=== PATIENT | female | born 1990 | race Two or more races ===

== ENCOUNTER 2018-09-01 08:43 | Emergency (ER) | payer OTHER, MEDICAID ==
[~2018-09-01] VITALS: Ht 162.6 cm; Wt 77.0 kg
[2018-09-01] MEDS ORDERED: IBUPROFEN 800MG TABLET PO ONE (09:45)
[2018-09-01 11:27] VITALS: BP 110/72
== END 2018-09-01 11:36 | disposition home or self-care (01) ==
LOC: ER 08:43
DX: S92.351A Displaced fracture of fifth metatarsal bone, right foot, initial encounter for closed fracture (principal); W19.XXXA Unspecified fall, initial encounter; Y93.89 Activity, other specified; Y92.89 Other specified places as the place of occurrence of the external cause; Y99.8 Other external cause status
CPT/HCPCS: 73630; 81025; 99283; Z7610

== ENCOUNTER 2019-04-08 09:26 | Emergency (ER) | payer MEDICAID, OTHER ==
[~2019-04-08] VITALS: Ht 157.5 cm; Wt 77.0 kg
[2019-04-08 10:57] LABS: BASOPHILS % 0.8 % (0.0-2.0); EOSINOPHILS % 1.8 % (0.0-5.0); HEMATOCRIT. 40.3 % (36.0-48.0); HEMOGLOBIN. 13.9 g/dL (12.0-16.0); LYMPHOCYTES % 28.2 % (20.0-50.0); MEAN CORPUSCULAR HEMOGLOBIN 29.3 pg (28.0-32.0); MEAN CORPUSCULAR VOLUME 84.8 fL (81.0-99.0); MEAN PLATELET VOLUME 8.2 fl (7.4-10.4); MONOCYTES % 6.7 % (2.0-8.0); NEUTROPHILS % 62.5 % (40.0-76.0); PLATELET 247 x1000/uL (130-400); RED BLOOD CELL COUNT 4.75 mill/uL (4.2-5.4)
[2019-04-08 11:04] LABS: CHLORIDE 107 mEq/L (98-107)
[2019-04-08 11:28] LABS: B-HCG QUANTITATIVE 5384 mIU/mL (<3)
[2019-04-08 12:13] LABS: CLARITY URINE CLEAR (CLEAR); COLOR URINE YELLOW (YELLOW); KETONES URINE NEGATIVE (NEGATIVE); LEUKOCYTE ESTERASE URINE TRACE (NEGATIVE); NITRITE URINE NEGATIVE (NEGATIVE); OCCULT BLOOD URINE 1+ (NEGATIVE); PH URINE 5.5 (4.5-8.0); PROTEIN URINE NEGATIVE (NEGATIVE); SPECIFIC GRAVITY URINE 1.003 (1.005-1.030); UROBILINOGEN URINE 0.2 E.U./dL (0.2-1.0)
[2019-04-08 13:42] VITALS: BP 118/72
== END 2019-04-08 13:43 | disposition home or self-care (01) ==
LOC: ER 09:26
DX: O20.0 Threatened abortion (principal); O23.41 Unspecified infection of urinary tract in pregnancy, first trimester; Z3A.01 Less than 8 weeks gestation of pregnancy; Z91.013 Allergy to seafood
CPT/HCPCS: 36415; 76801; 81003; 81025; 84702; 86850; 86900; 99284

== ENCOUNTER 2019-04-10 06:09 | Emergency (ER) | payer MEDICAID ==
[~2019-04-10] VITALS: Ht 157.5 cm; Wt 76.0 kg
[2019-04-10 07:29] LABS: CHLORIDE 108 mEq/L (98-107)
[2019-04-10 07:52] LABS: B-HCG QUANTITATIVE 3248 mIU/mL (<3)
[2019-04-10 08:30] LABS: BASOPHILS % 0.7 % (0.0-2.0); EOSINOPHILS % 1.6 % (0.0-5.0); HEMATOCRIT. 40.1 % (36.0-48.0); HEMOGLOBIN. 13.8 g/dL (12.0-16.0); LYMPHOCYTES % 20.5 % (20.0-50.0); MEAN CORPUSCULAR HEMOGLOBIN 29.1 pg (28.0-32.0); MEAN CORPUSCULAR VOLUME 84.2 fL (81.0-99.0); MEAN PLATELET VOLUME 8.3 fl (7.4-10.4); MONOCYTES % 7.1 % (2.0-8.0); NEUTROPHILS % 70.1 % (40.0-76.0); PLATELET 247 x1000/uL (130-400); RED BLOOD CELL COUNT 4.76 mill/uL (4.2-5.4); RED CELL DISTRIBUTION WIDTH 13.1 % (11.6-14.6)
[2019-04-10] MEDS ORDERED: ACETAMINOPHEN 325MG TABLET PO ONE (09:45)
[2019-04-10 16:06] VITALS: BP 116/69
== END 2019-04-10 16:40 | disposition home or self-care (01) ==
LOC: ER 06:09
DX: O20.0 Threatened abortion (principal); Z3A.00 Weeks of gestation of pregnancy not specified; Z91.013 Allergy to seafood
CPT/HCPCS: 36415; 76801; 76817; 80048; 84702; 85018; 85025; 86850; 86900; 86901; 99284; Z7610

== ENCOUNTER 2019-08-20 01:38 | Emergency (ER) | payer MEDICAID ==
[~2019-08-20] VITALS: Ht 162.6 cm; Wt 73.0 kg
[2019-08-20 01:40] VITALS: BP 123/57
[2019-08-20] MEDS ORDERED: TETRACAINE 0.5% OPHTH DROPS 4ML LEFTEYE ONE (02:45)
[2019-08-20] MEDS ORDERED: TETANUS, DIPHTHERIA, PERTUSSIS VAC/PF 0.5ML (>7YR OLD) IM ONE (02:45)
[2019-08-20] MEDS ORDERED: FLUORESCEIN SODIUM 1MG/STRIP LEFTEYE ONE (02:45)
[2019-08-20] MEDS ORDERED: LIDOCAINE HCL/PF 1% 10 MG/ML 5ML VIAL IJ ONE (02:45)
[2019-08-20] MEDS ORDERED: BACITRACIN ZINC OINT UDPKT TOP ONE (02:45)
[2019-08-20] MEDS ORDERED: ACETAMINOPHEN 325MG TABLET PO ONE (05:15)
== END 2019-08-20 06:49 | disposition home or self-care (01) ==
LOC: ER 01:38
DX: R51 Headache (principal); Z91.013 Allergy to seafood
CPT/HCPCS: 12013; 70450; 70486; 76801; 81025; 90471; 90715; 99285; J3490

== ENCOUNTER 2021-02-04 16:42 | Emergency (ER) | payer MEDICAID ==
[~2021-02-04] VITALS: Ht 162.6 cm; Wt 7.0 kg
[2021-02-04] MEDS ORDERED: IBUP-2029 MT (17:55)
[2021-02-04] MEDS ORDERED: CYCL10TA7 MT (17:56)
[2021-02-04] MEDS ORDERED: KETOROLAC 60MG/2ML VIAL IM ONE (18:00)
[2021-02-04 18:23] VITALS: BP 113/74
== END 2021-02-04 18:29 | disposition home or self-care (01) ==
LOC: ER 17:04
DX: M54.12 Radiculopathy, cervical region (principal)
CPT/HCPCS: 96372; 99283; J1885

== ENCOUNTER 2022-09-05 18:20 | Emergency (ER) | payer MEDICAID ==
[~2022-09-05] VITALS: Ht 157.5 cm; Wt 77.3 kg
[~2022-09-05 18:20] MED LIST: CYCL10TA21 MT; IBUP-2029 MT
[2022-09-05 18:23] VITALS: BP 131/80
[2022-09-06] MEDS ORDERED: NAP5EC PO (00:21)
== END 2022-09-06 00:41 | disposition home or self-care (01) ==
LOC: ER 18:20
DX: S93.602A Unspecified sprain of left foot, initial encounter (principal); X58.XXXA Exposure to other specified factors, initial encounter; Y93.89 Activity, other specified; Y92.89 Other specified places as the place of occurrence of the external cause; Y99.8 Other external cause status
CPT/HCPCS: 73630; 81025; 99283

== ENCOUNTER 2024-02-01 11:26 | Emergency (ER) | payer MEDICAID ==
[~2024-02-01] VITALS: Ht 152.4 cm; Wt 78.0 kg
[~2024-02-01 11:26] MED LIST changes: +NAP5EC PO
[2024-02-01 11:28] VITALS: O2SAT 100
[2024-02-01 11:37] VITALS: BP 129/79; PULSE 77; RESP 17; TEMP 98.4; O2SAT 99
== END 2024-02-01 14:21 | disposition home or self-care (01) ==
LOC: ER 11:26
DX: Z00.00 Encounter for general adult medical examination without abnormal findings (principal); Z91.013 Allergy to seafood
CPT/HCPCS: 70360; 74022; 81025; 99284

== ENCOUNTER 2025-03-05 17:21 | Emergency (ER) | payer MEDICAID ==
[~2025-03-05] VITALS: Ht 165.1 cm; Wt 68.0 kg
[~2025-03-05 17:21] MED LIST changes: +IBUP-1455 MT; -IBUP-2029 MT; -NAP5EC PO; +NAPR-1495 PO
[2025-03-05 17:31] VITALS: O2SAT 99
[2025-03-05 18:52] LABS: BASOPHILS % 0.8 % (0.0-2.0); EOSINOPHILS % 1.5 % (0.0-5.0); HEMATOCRIT. 41.2 % (36.0-48.0); HEMOGLOBIN. 14.0 g/dL (12.0-16.0); LYMPHOCYTES % 36.5 % (20.0-50.0); MEAN PLATELET VOLUME 8.6 fl (7.4-10.4); MONOCYTES % 9.1 % (2.0-8.0); NEUTROPHILS % 52.1 % (40.0-76.0); PLATELET 234 x1000/uL (130-400); RED BLOOD CELL COUNT 4.93 mill/uL (4.2-5.4); RED CELL DISTRIBUTION WIDTH 13.0 % (11.6-14.6)
[2025-03-05 19:00] LABS: CREATININE 0.7 mg/dL (0.6-1.0)
[2025-03-05 19:01] LABS: UREA NITROGEN BLOOD 7 mg/dL (9-23)
[2025-03-05 19:07] LABS: HCG SCREEN NEGATIVE
[2025-03-05 19:53] LABS: CLARITY URINE CLOUDY (CLEAR); COLOR URINE DARK YELLOW (YELLOW); GLUCOSE URINE NEGATIVE (NEGATIVE); KETONES URINE TRACE (NEGATIVE); LEUKOCYTE ESTERASE URINE TRACE (NEGATIVE); NITRITE URINE NEGATIVE (NEGATIVE); OCCULT BLOOD URINE NEGATIVE (NEGATIVE); PH URINE 5.5 (4.5-8.0); PROTEIN URINE 1+ (NEGATIVE); SPECIFIC GRAVITY URINE 1.031 (1.005-1.030); UROBILINOGEN URINE 1.0 E.U./dL (0.2-1.0)
[2025-03-05] MEDS: KETOROLAC 30MG/ML VIAL IM ONE (19:57)
[2025-03-05] MEDS: ONDANSETRON HCL 4MG TABLET PO ONE (19:58)
[2025-03-05] MEDS: ACETAMINOPHEN 325MG TABLET PO ONE (19:58)
[2025-03-05 20:00] LABS: INFLUENZA TYPE A Presumptive Negative (Pres. Neg.); INFLUENZA TYPE B Presumptive Negative (Pres. Neg.)
[2025-03-05 20:41] LABS: BACTERIA URINE 1+; RBC URINE 0-2 /hpf (0-2); SQUAMOUS EPITHELIAL CELL URINE 1+ /lpf (RARE/1+)
[2025-03-05] MEDS ORDERED: ASPI1TAB8 PO (20:58)
[2025-03-05 21:13] VITALS: BP 122/82; PULSE 85; RESP 16; TEMP 37.2; O2SAT 100
[2025-03-05 21:46] LABS: ASPARTATE AMINOTRANSFERASE 29 IU/L (<34); BILIRUBIN DIRECT 0.2 mg/dL (<=3.0)
[2025-03-05 21:47] LABS: BILIRUBIN TOTAL 0.8 mg/dL (0.1-1.0); PROTEIN TOTAL 7.7 g/dL (6.0-8.3)
== END 2025-03-05 21:21 | disposition home or self-care (01) ==
LOC: ER 17:21
DX: G44.209 Tension-type headache, unspecified, not intractable (principal); Z91.013 Allergy to seafood; Z79.899 Other long term (current) drug therapy; Z20.822 Contact with and (suspected) exposure to COVID-19
CPT/HCPCS: 99283; 87426; 80076; 80048; 81003; 81025; 84703; 83690; 85025; 87804 ×2; 36415; 96372; J1885; Q0162

== ENCOUNTER 2025-05-03 13:44 | Emergency (ER) | payer MEDICAID ==
[~2025-05-03] VITALS: Ht 160 cm; Wt 81.0 kg
[~2025-05-03 13:44] MED LIST changes: +ASPI1TAB8 PO
[2025-05-03 13:57] VITALS: O2SAT 99
[2025-05-03] MEDS: SODIUM CHLORIDE 0.9% 1,000 ML IV ONE (15:34)
[2025-05-03] MEDS: KETOROLAC 15MG/ML VIAL IV ONE (15:35)
[2025-05-03] MEDS: METOCLOPRAMIDE HCL 10MG/2ML VIAL IV ONE (15:35)
[2025-05-03] MEDS: DIPHENHYDRAMINE 50MG/ML VIAL IV ONE (15:35)
[2025-05-03 15:56] LABS: BASOPHILS % 1.0 % (0.0-2.0); EOSINOPHILS % 1.7 % (0.0-5.0); HEMATOCRIT. 38.8 % (36.0-48.0); HEMOGLOBIN. 13.1 g/dL (12.0-16.0); LYMPHOCYTES % 22.0 % (20.0-50.0); MEAN PLATELET VOLUME 7.9 fl (7.4-10.4); MONOCYTES % 7.0 % (2.0-8.0); NEUTROPHILS % 68.3 % (40.0-76.0); PLATELET 325 x1000/uL (130-400); RED BLOOD CELL COUNT 4.64 mill/uL (4.2-5.4); RED CELL DISTRIBUTION WIDTH 13.1 % (11.6-14.6)
[2025-05-03] MEDS: ACETAMINOPHEN 1000MG/100ML 100 ML IV ONE (16:00)
[2025-05-03 16:05] LABS: CREATININE 0.6 mg/dL (0.6-1.0); HCG SCREEN NEGATIVE
[2025-05-03 16:06] LABS: UREA NITROGEN BLOOD 7 mg/dL (9-23)
[2025-05-03] MEDS ORDERED: IBUP-1455 MT (17:13)
[2025-05-03] MEDS ORDERED: GUAI-450 MT (17:13)
[2025-05-03] MEDS ORDERED: AMOX-494 MT (17:13)
[2025-05-03] MEDS: POTASSIUM CHLORIDE 10MEQ TABLET SR PO ONE (17:47)
[2025-05-03 18:46] VITALS: BP 110/70; PULSE 89; RESP 16; TEMP 36.8; O2SAT 99
== END 2025-05-03 18:47 | disposition home or self-care (01) ==
LOC: ER 13:55
DX: G43.109 Migraine with aura, not intractable, without status migrainosus (principal); J18.9 Pneumonia, unspecified organism; H53.2 Diplopia; Z79.82 Long term (current) use of aspirin
CPT/HCPCS: 99285; 96365; 96375; 70450; 71045; 80048; 81025; 84703; 85025; 85651; 36415; J1885; J1200; J2765; J7030; J0131